=== PATIENT | female | born 1935 | race Caucasian/White ===

== ENCOUNTER 2017-03-01 06:35 | Observation (INO) ==
--- NOTE | 2017-03-01 07:17 | Emergency Department Note ---
Disposition Clinical Impression: Altered mental status, Confusion, Leukocytosis, LBBB (left bundle branch block) Disposition: Admitted As Inpatient Altered Mental Status HPI - General Chief Complaint: ED Altered Mental Status Stated Complaint: ams Time Seen by Provider: 03/01/17 06:38 Source: EMS Mode of arrival: EMS Limitations: altered mental status Nursing Notes Reviewed: Yes Vital Signs Reviewed: Yes - History of Present Illness HPI Narrative: History is the patient typically is up reading her Bible every day over the past 24 hours since fall yesterday she has had increasing confusion to the point where she comes into the ER today decreased responsiveness unable to count conversation mumbling no respiratory distress noted patient unable to provide history no additional history is provided by the care facility at this time MD complaint: altered mental status, confusion, decreased responsiveness Onset (ago): day(s) Timing confirmed by: caregiver Pain Severity: unable Consistency of Symptoms: getting worse Context: trauma Associated symptoms: Reports: other (Unable to provide) - Related Data Home Medications Medication Instructions Recorded Confirmed Bisacodyl [Woman's Laxative] 5 mg PO PRN PRN 03/01/17 03/04/17 Cranberry 900 mg PO DAILY 03/01/17 03/04/17 Divalproex Sodium [Depakote] 250 mg PO BID 03/01/17 03/04/17 Docusate [Colace] 100 mg PO DAILY 03/01/17 03/04/17 Furosemide [Lasix] 20 mg PO DAILY 03/01/17 03/04/17 Levothyroxine [Synthroid] 50 mcg PO 0630 03/01/17 03/04/17 Sitagliptin Phosphate [Januvia] 50 mg PO DAILY 03/01/17 03/04/17 Acetaminophen [Tylenol] 650 mg PO Q4H PRN 03/04/17 03/04/17 Benztropine Mesylate 1 mg PO BID 03/04/17 03/04/17 Ibuprofen [Motrin] 400 mg PO Q8H PRN 03/04/17 03/04/17 Losartan Potassium [Cozaar] 50 mg PO DAILY 03/04/17 03/04/17 Magnesium Hydroxide [Milk of 30 ml PO DAILY PRN 03/04/17 03/04/17 Magnesia] Mv,Fe,Min/Lutein [A Thru Z Select 1 tab PO DAILY 03/04/17 03/04/17 Women's Tablet] Ondansetron HCl [Zofran] 4 mg PO Q4H PRN 03/04/17 03/04/17 Ziprasidone HCl [Geodon] 20 mg PO BID 03/04/17 03/04/17 risperiDONE [RisperDAL] 1 mg PO BID 03/04/17 03/04/17 Previous Rx's Medication Instructions Recorded Aspirin [Lo-Dose Aspirin EC] 81 mg PO Q48H #0 03/02/17 LORazepam [Ativan] 0.5 mg PO TID PRN #0 03/02/17 Allergies Allergy/AdvReac Type Severity Reaction Status Date / Time No Known Allergies Allergy Verified 03/01/17 06:37 Limitations: ROS unobtainable due to patients medical condition Past Medical History - Past Medical History Source: unable to obtain, old records reviewed, nursing notes reviewed Medical history: Reports: CHF, dementia, diabetes, hypertension Psychiatric history: Reports: anxiety, bipolar, schizophrenia - Social History Smoking Status: Former smoker Smokeless Tobacco Status: No Alcohol use: Reports: none Physical Exam - General Limitations: altered mental status General appearance: alert, in no apparent distress, anxious (Jumbled speech) - Head Head exam: normocephalic, normal inspection - Expanded Head Exam 1 - facial brising - Eye Eye exam: Present: normal appearance, PERRL, EOMI - ENT ENT exam: normal exam, normal oropharynx, mucous membranes moist, normal external ear exam, other (secretion in throat) - Neck Neck exam: Present: normal inspection, full ROM, trachea midline - Chest Chest inspection: Present: normal inspection, symmetric chest wall rise - Respiratory Respiratory exam: Present: normal lung sounds bilaterally, other (transmitted upper airway sounds) - Cardiovascular Cardiovascular exam: Present: regular rate, normal rhythm, normal heart sounds - Abdominal Exam Abdominal exam: Present: soft, Non-Tender, normal bowel sounds - Extremities Exam Extremities exam: Present: other (Moving upper extremities lower extremities are edematous no gross pitting noted no sores no lesions purposeful movements are intact withdrawing to pain but no gross asymmetry noted +2 radial ulnar dorsal pedal posterior tibial pulses neurosensory intact withdraws to pain) - Expanded Lower Extremity Exam Neurovascular/Tendon exam: Present: normal capillary refill - Back Exam Back exam: Present: normal inspection, full ROM - Neurological Exam Neurological exam: Present: alert, CN II-XII intact, other (confused) - Psychiatric Psychiatric exam: Present: agitated - Skin Skin exam: Present: warm, dry, intact, normal color Course Course Narrative: Multisystem workup was started on the patient upon evaluation the patient to rule out etiologies for the confusional state labs and x-rays are pending - Reevaluation(s) Reevaluation #1: pt improved post fluids patient is more alert speech is much more discernible hematoma more pronounced to the face and skin is pink warm and dry with exception of the bruising around the face patient did have a little decrease in her blood pressure but responded well to fluid resuscitation blood pressure 106/ 76 heart rate 73 sats 97% respiratory rate in the 20s lungs are clear heart regular rate capillary refill is brisk no cyanosis strong peripheral pulses noted in skin is without tears or lesions. Dr. Gonzalez agreed for admission Vital Signs Temperature 98.3 F 03/01/17 06:38 Pulse Rate 112 03/01/17 06:38 Respiratory Rate 18 03/01/17 06:38 Blood Pressure 105/68 03/01/17 06:38 O2 Sat by Pulse Oximetry 95 03/01/17 06:38 Temperature 98 F 03/02/17 10:00 Pulse Rate 91 03/02/17 10:00 Respiratory Rate 18 03/02/17 10:00 Blood Pressure 125/63 03/02/17 10:00 O2 Sat by Pulse Oximetry 91 03/02/17 10:00 Oxygen Delivery Oxygen Delivery Nasal Cannula Altered Mental Status - [facility] Narrative Medical decision making narrative: cva intercranial bleed infectious - Differential Diagnosis Likely: altered mental status, delirium, dementia, hypoglycemia, hyponatremia, sepsis - Medical Records Medical records reviewed: Yes I reviewed the patient's medical records. - Lab Data Lab results reviewed: Yes I reviewed the patient's lab results. Result diagrams: 03/02/17 04:16 03/02/17 04:16 Lab Results 03/01/17 03/01/17 03/01/17 Range/Units 06:47 07:25 07:25 WBC 8.0 (4.3-11.1) K/mcL RBC 4.47 (3.82-4.97) M/mcL Hgb 13.4 (11.5-15.4) g/dL Hct 40.9 (35.3-44.9) % MCV 91.5 (83.0-100.0) fL MCH 30.0 (28.0-33.3) pg MCHC 32.8 (31.6-35.5) g/dL RDW 12.9 (11.5-14.5) % Plt Count 313 (140-400) K/mcL MPV 10.1 (9.4-12.4) fL Immature Gran % 0.6 (0-4) % Seg Neutrophils % 79.2 % Lymphocytes % 12.7 % Monocytes % 5.6 % Eosinophils % 1.2 % Basophils % 0.7 % Neutrophils # 6.3 (1.6-8.9) K/mcL Lymphocytes # 1.0 (0.6-4.6) K/mcL Monocytes # 0.5 (0.0-1.3) K/mcL Eosinophils # 0.1 (0.0-0.6) K/mcL Basophils # 0.1 (0.0-0.2) K/mcL PT 10.9 (9.4-12.1) Seconds INR 1.0 APTT 26.6 (26.0-36.0) Seconds Sodium (136-145) mEq/L Potassium (3.5-4.5) mEq/L Chloride (98-109) mEq/L Carbon Dioxide (19-29) mEq/L BUN (7-20) mg/dL Creatinine (0.57-1.11) mg/dL Est GFR ( Amer) (> 60) Est GFR (Non-Af Amer) (> 60) BUN/Creatinine Ratio (6-26) Glucose (70-99) mg/dL POC Glucose 157 H (58-89) Calculated Osmolality (280-300) Lactic Acid (0.5-2.2) mmol/L Calcium (8.6-10.8) mg/dL Total Bilirubin (0.2-1.2) mg/dL AST (5-34) Units/L ALT (0-55) Units/L Alkaline Phosphatase (38-126) Units/L Troponin I (0-0.03) ng/mL Serum Total Protein (6.0-8.3) g/dL Albumin (3.5-5.0) g/dL Globulin (2.4-3.5) g/dL Albumin/Globulin Ratio (1.1-2.2) TSH (0.350-4.840) mcIU/mL Urine Color (Yellow) Urine Clarity (Clear) Urine pH (5.0-8.0) pH Units Ur Specific [place] (1.010-1.025) Urine Protein (Neg-Trace) mg/dL Urine Glucose (UA) (Normal) mg/dL Urine Ketones (Negative) mg/dL Urine Blood (Negative) Urine Nitrite (Negative) Urine Bilirubin (Negative) Urine Urobilinogen (Normal) mg/dL Ur Leukocyte Esterase (Negative) Urine Microscopic WBC (0-3) per hpf Ur Squamous Epith Cells (None-Few) per lpf Urine Bacteria (None-Few) per hpf Hyaline Casts (None-Few) per lpf Ur Culture Indicated? (NO) Valproic Acid (50-100) mcg/mL 03/01/17 03/01/17 03/01/17 Range/Units 07:25 07:25 07:25 WBC (4.3-11.1) K/mcL RBC (3.82-4.97) M/mcL Hgb (11.5-15.4) g/dL Hct (35.3-44.9) % MCV (83.0-100.0) fL MCH (28.0-33.3) pg MCHC (31.6-35.5) g/dL RDW (11.5-14.5) % Plt Count (140-400) K/mcL MPV (9.4-12.4) fL Immature Gran % (0-4) % Seg Neutrophils % % Lymphocytes % % Monocytes % % Eosinophils % % Basophils % % Neutrophils # (1.6-8.9) K/mcL Lymphocytes # (0.6-4.6) K/mcL Monocytes # (0.0-1.3) K/mcL Eosinophils # (0.0-0.6) K/mcL Basophils # (0.0-0.2) K/mcL PT (9.4-12.1) Seconds INR APTT (26.0-36.0) Seconds Sodium 140 (136-145) mEq/L Potassium 4.0 (3.5-4.5) mEq/L Chloride 105 (98-109) mEq/L Carbon Dioxide 23 (19-29) mEq/L BUN 17 (7-20) mg/dL Creatinine 0.85 (0.57-1.11) mg/dL Est GFR ( Amer) > 60 (> 60) Est GFR (Non-Af Amer) > 60 (> 60) BUN/Creatinine Ratio 20 (6-26) Glucose 174 H (70-99) mg/dL POC Glucose (58-89) Calculated Osmolality 296 (280-300) Lactic Acid 2.1 (0.5-2.2) mmol/L Calcium 9.5 (8.6-10.8) mg/dL Total Bilirubin 0.5 (0.2-1.2) mg/dL AST 16 (5-34) Units/L ALT 15 (0-55) Units/L Alkaline Phosphatase 83 (38-126) Units/L Troponin I 0.02 (0-0.03) ng/mL Serum Total Protein 6.8 (6.0-8.3) g/dL Albumin 3.5 (3.5-5.0) g/dL Globulin 3.3 (2.4-3.5) g/dL Albumin/Globulin Ratio 1.1 (1.1-2.2) TSH 2.621 (0.350-4.840) mcIU/mL Urine Color (Yellow) Urine Clarity (Clear) Urine pH (5.0-8.0) pH Units Ur Specific [place] (1.010-1.025) Urine Protein (Neg-Trace) mg/dL Urine Glucose (UA) (Normal) mg/dL Urine Ketones (Negative) mg/dL Urine Blood (Negative) Urine Nitrite (Negative) Urine Bilirubin (Negative) Urine Urobilinogen (Normal) mg/dL Ur Leukocyte Esterase (Negative) Urine Microscopic WBC (0-3) per hpf Ur Squamous Epith Cells (None-Few) per lpf Urine Bacteria (None-Few) per hpf Hyaline Casts (None-Few) per lpf Ur Culture Indicated? (NO) Valproic Acid (50-100) mcg/mL 03/01/17 03/01/17 Range/Units 07:25 07:25 WBC (4.3-11.1) K/mcL RBC (3.82-4.97) M/mcL Hgb (11.5-15.4) g/dL Hct (35.3-44.9) % MCV (83.0-100.0) fL MCH (28.0-33.3) pg MCHC (31.6-35.5) g/dL RDW (11.5-14.5) % Plt Count (140-400) K/mcL MPV (9.4-12.4) fL Immature Gran % (0-4) % Seg Neutrophils % % Lymphocytes % % Monocytes % % Eosinophils % % Basophils % % Neutrophils # (1.6-8.9) K/mcL Lymphocytes # (0.6-4.6) K/mcL Monocytes # (0.0-1.3) K/mcL Eosinophils # (0.0-0.6) K/mcL Basophils # (0.0-0.2) K/mcL PT (9.4-12.1) Seconds INR APTT (26.0-36.0) Seconds Sodium (136-145) mEq/L Potassium (3.5-4.5) mEq/L Chloride (98-109) mEq/L Carbon Dioxide (19-29) mEq/L BUN (7-20) mg/dL Creatinine (0.57-1.11) mg/dL Est GFR ( Amer) (> 60) Est GFR (Non-Af Amer) (> 60) BUN/Creatinine Ratio (6-26) Glucose (70-99) mg/dL POC Glucose (58-89) Calculated Osmolality (280-300) Lactic Acid (0.5-2.2) mmol/L Calcium (8.6-10.8) mg/dL Total Bilirubin (0.2-1.2) mg/dL AST (5-34) Units/L ALT (0-55) Units/L Alkaline Phosphatase (38-126) Units/L Troponin I (0-0.03) ng/mL Serum Total Protein (6.0-8.3) g/dL Albumin (3.5-5.0) g/dL Globulin (2.4-3.5) g/dL Albumin/Globulin Ratio (1.1-2.2) TSH (0.350-4.840) mcIU/mL Urine Color Yellow (Yellow) Urine Clarity Clear (Clear) Urine pH 5.0 (5.0-8.0) pH Units Ur Specific [place] 1.015 (1.010-1.025) Urine Protein Negative (Neg-Trace) mg/dL Urine Glucose (UA) Normal (Normal) mg/dL Urine Ketones Negative (Negative) mg/dL Urine Blood Negative (Negative) Urine Nitrite Negative (Negative) Urine Bilirubin Negative (Negative) Urine Urobilinogen Normal (Normal) mg/dL Ur Leukocyte Esterase Small H (Negative) Urine Microscopic WBC 3-5 H (0-3) per hpf Ur Squamous Epith Cells Few (None-Few) per lpf Urine Bacteria Many H (None-Few) per hpf Hyaline Casts Few (None-Few) per lpf Ur Culture Indicated? YES A (NO) Valproic Acid 38.1 L (50-100) mcg/mL - Radiology Data Radiology results reviewed: Yes I reviewed the patient's radiology results. ITS Impressions Cervical Spine CT 03/01/17 06:54 IMPRESSION: No acute abnormality of the cervical spine. D/ / Angel Salinas MD / Angel Salinas MD Interpreting Provider: Angel Salinas MD Chest X-Ray 03/01/17 06:54 IMPRESSION: Slightly limited exam due to technique, however no acute findings. D/ / 03/01/2017 08:12:10 Jb Villa / casey Interpreting Provider: Jb Villa Head CT 03/01/17 06:54 IMPRESSION: Left frontal scalp subcutaneous soft tissue swelling. No acute intracranial abnormality. 2.2 x 2.5 x 2.6 cm partially calcified extra-axial mass centered along the anterior falx, with local mass effect upon the adjacent structures, likely related to a meningioma. Follow-up brain MRI with and without contrast is recommended. Mild parenchymal volume loss. Mild chronic microvascular disease. D/ / Juan Jose Cohen MD / Juan Jose Cohen MD Interpreting Provider: Juan Jose Cohen MD - EKG Data EKG attestation: Yes I reviewed and interpreted this EKG. EKG results narrative: Left bundle branch sinus tach rate 105 PM 176 QRS 130 QT 358 axis XXXVIII TPA Checklist - LKW: 3-4.5 hrs Add. Warnings/Precautions Patient/family understanding: The patient/family members have been counseled and understood the risk, benefit , and alternatives of treatment. Critical Care Time Critical Care Time: Yes Total Critical Care Time: 35 Attestation: Critical care performed: 35 minutes as result of the patient having an alteration of her mental status unable to provide us with any history during workup to try to determine etiology for the alteration of the patient's mental status weathers intercranial bleed or infectious etiology awaiting results at this time to determine admission versus transfer he does have an underlying UTI which may be the precipitating factor spoke with Dr. Gonzalez she has a benign calcified meningioma within the intercranial region documented from prior patient will be transferred to [facility] Time is exclusive of separately billable procedures. Time includes: direct patient care, patient reassessment, coordination of patient care, interpretation of data (laboratory data, radiology data, and respiratory data), review of patient's medical records, medical consultation and documentation of patient care. Procedures included in critical care time: Procedures excluded from critical care time:
[2017-03-01 07:38] LABS: Basophils # 0.1 K/mcL (0.0-0.2); Basophils % 0.7 %; Eosinophils # 0.1 K/mcL (0.0-0.6); Eosinophils % 1.2 %; Hematocrit 40.9 % (35.3-44.9); Hemoglobin 13.4 g/dL (11.5-15.4); Immature Granulocytes % 0.6 % (0-4); Lymphocytes % 12.7 %; Mean Corpuscular HGB Conc 32.8 g/dL (31.6-35.5); Mean Corpuscular Volume 91.5 fL (83.0-100.0); Mean Platelet Volume 10.1 fL (9.4-12.4); Monocytes # 0.5 K/mcL (0.0-1.3); Monocytes % 5.6 %; Neutrophils # 6.3 K/mcL (1.6-8.9); Platelet Count 313 K/mcL (140-400); Red Blood Count 4.47 M/mcL (3.82-4.97); Red Cell Distribution Width 12.9 % (11.5-14.5); Segmented Neutrophils % 79.2 %
[2017-03-01 07:40] LABS: Bilirubin,Urine Negative (Negative); Blood,Urine Negative (Negative); Clarity,Urine Clear (Clear); Color,Urine Yellow (Yellow); Glucose,Urine (UA) Normal (Normal); Ketones,Urine Negative (Negative); Leukocyte Esterase,Urine Small (Negative); Nitrite,Urine Negative (Negative); Protein,Urine Negative (Neg-Trace); Prothrombin Time 10.9 Seconds (9.4-12.1); Specific Gravity,Urine 1.015 (1.010-1.025); Urobilinogen,Urine Normal (Normal)
[2017-03-01 07:43] LABS: Activated Partial Thrombo Time 26.6 Seconds (26.0-36.0)
[2017-03-01 07:51] LABS: Bacteria,Urine Many per hpf (None-Few); Hyaline Casts,Urine Few per lpf (None-Few); Squamous Epithelial Cell,Urine Few per lpf (None-Few)
[2017-03-01 08:06] LABS: Alanine Aminotransferase 15 Units/L (0-55); Albumin 3.5 g/dL (3.5-5.0); Albumin/Globulin Ratio 1.1 (1.1-2.2); Alkaline Phosphatase 83 Units/L (38-126); Aspartate Amino Transferase 16 Units/L (5-34); BUN/Creatinine Ratio 20 (6-26); Bilirubin,Total 0.5 mg/dL (0.2-1.2); Blood Urea Nitrogen 17 mg/dL (7-20); Calcium 9.5 mg/dL (8.6-10.8); Carbon Dioxide 23 mEq/L (19-29); Chloride 105 mEq/L (98-109); Globulin 3.3 g/dL (2.4-3.5); Glucose 174 mg/dL (70-99); Osmolality,Calculated 296 (280-300); Sodium 140 mEq/L (136-145); Total Protein 6.8 g/dL (6.0-8.3); eGFR For African Americans > 60 (> 60); eGFR For Non-African Americans > 60 (> 60)
[2017-03-01] MEDS ORDERED: 0.9 % Sodium Chloride 500 ML IVC ONE (08:16)
[2017-03-01 08:26] LABS: Thyroid Stimulating Hormone 2.621 mcIU/mL (0.350-4.840)
[2017-03-01] MEDS ORDERED: 0.9 % Sodium Chloride 1,000 ML IVC ONE (08:30)
[2017-03-01] MEDS ORDERED: *HR* SitaGLIPtin 25 MG TABLET PO SCH (09:39)
[2017-03-01] MEDS ORDERED: *HR* LORazepam 0.5 MG TABLET PO SCH ×2 (09:39→15:00)
[2017-03-01] MEDS ORDERED: CRANBERRY 900 MG PO SCH (09:39)
[2017-03-01] MEDS ORDERED: Divalproex Sodium 125 MG CAPSULE PO SCH (09:39)
[2017-03-01] MEDS ORDERED: Aspirin Enteric Coated 81 MG Tablet PO SCH (09:39)
[2017-03-01] MEDS ORDERED: Furosemide 20 MG TABLET PO SCH (09:39)
[2017-03-01] MEDS ORDERED: Acetaminophen 325 MG TABLET PO PRN (09:39)
[2017-03-01] MEDS ORDERED: Ziprasidone 20 MG CAPSULE PO SCH ×2 (09:39→21:00)
[2017-03-01] MEDS ORDERED: risperiDONE 1 MG TABLET PO SCH ×2 (09:39→21:00)
[2017-03-01] MEDS ORDERED: Naloxone 0.4 MG/ML INJ IVP PRN (09:39)
[2017-03-01] MEDS: 0.9 % Sodium Chloride 1,000 ML IVC SCH (14:18)
[2017-03-01] MEDS ORDERED: *HR* LORazepam 0.5 MG TABLET PO PRN (14:49)
--- NOTE | 2017-03-01 14:53 | Internal Med History&Physical ---
Date of Encounter: 03/01/17 Time of Encounter: 14:25 Assessment and Plan (1) Confusion Current visit: Yes Status: Acute Possibly multifactorial etiology including underlying dementia, medication effects, and possible UTI. Will hold psychotropic medications and reevaluate tomorrow. (2) Meningioma Current visit: Yes Status: Acute Diagnosis consistent with partially calcified mass seen on CT of head. (3) Hypertension Current visit: Yes Status: Chronic We will hold Cozaar because of borderline hypotension. Qualifiers: Hypertension type: essential hypertension Qualified Code(s): I10 - Essential (primary) hypertension (4) DM type 2 (diabetes mellitus, type 2) Current visit: Yes Status: Acute Hemoglobin A1c was 5.9% on 12/31/2016. Continue Januvia Qualifiers: Diabetes mellitus complication status: with unspecified complications Diabetes mellitus custodial insulin use: without custodial use Qualified Code( s): E11.8 - Type 2 diabetes mellitus with unspecified complications (5) Dementia Current visit: Yes Status: Chronic TSH was normal in emergency room. Will check B12 level Qualifiers: Dementia type: unspecified type Dementia behavioral disturbance: with behavioral disturbance Qualified Code(s): F03.91 - Unspecified dementia with behavioral disturbance Internal Medicine - H&P: HPI Chief complaint: Decreased LOC with confusion Admitted From: Long-term Nursing Facility Plans for Post Hospital Care: Transfer [facility] History of present illness: Ms. Sin is a 81 year old female who was brought to the emergency room after skilled nursing staff reported she had had increasing confusion and decreased LOC over the past 24 hours. She could not give any reliable history. She had a fall on February 28 at the skilled nursing with trauma to her left supraorbital area. Head CT and C-spine CT in emergency room did not show acute pathology. She was admitted to Med[facility] floor for ongoing care needs. Past Med Surg Social Fam HX - Past Medical History Medical history: CHF, dementia, diabetes, hypertension Psychiatric history: anxiety, bipolar, schizophrenia - Social History Smoking Status: Former smoker Smokeless Tobacco Status: No Alcohol use: none Internal Medicine - H&P: Meds Aspirin [Lo-Dose Aspirin EC] 81 mg PO DAILY 03/01/17 [History] Benztropine [Cogentin] 1 mg PO BID 03/01/17 [History] Bisacodyl [Woman's Laxative] 5 mg PO PRN PRN 03/01/17 [History] Cranberry 900 mg PO DAILY 03/01/17 [History] Divalproex Sodium [Depakote] 125 mg PO BID 03/01/17 [History] Docusate [Colace] 100 mg PO DAILY 03/01/17 [History] Furosemide [Lasix] 20 mg PO DAILY 03/01/17 [History] LORazepam [Ativan] 0.5 mg PO TID 03/01/17 [History] Levothyroxine [Synthroid] 50 mcg PO 0630 03/01/17 [History] Losartan Potassium [Cozaar] 50 mg PO DAILY 03/01/17 [History] Sitagliptin Phosphate [Januvia] 50 mg PO DAILY 03/01/17 [History] Ziprasidone [Geodon] 20 mg PO BID 03/01/17 [History] risperiDONE [Risperdal] 1 mg PO BID 03/01/17 [History] 3 Allergy/AdvReac Type Severity Reaction Status Date / Time No Known Allergies Allergy Verified 03/01/17 06:37 All Systems PM: A 10-system review of systems was performed and is negative for pertinent findings except as documented above in the HPI. Review of systems: Unavailable from the patient. Available records show diagnoses of CHF, dementia , DM 2, hypertension, anxiety, bipolar disorder, and schizophrenia. - Constitutional Vitals: Temp Pulse Resp BP Pulse Ox 98.0 F 72 20 88/42 94 03/01/17 14:27 03/01/17 14:27 03/01/17 14:27 03/01/17 14:27 03/01/17 14:27 Exam: Gen.: She is a well-developed well-nourished female lying quietly in bed. She is not conversational. She does answer an occasional question but answers are not felt to be accurate. HEENT: Head shows contusion in the left supraorbital area. No lacerations are seen. Eyes: EOMI. There is no scleral icterus. Mouth: Mucosa is dry. Neck: Supple and nontender. There is no thyromegaly or adenopathy noted. Heart: Regular without murmurs gallops or ectopics Lungs: No wheezes or crackles are heard. Abdomen: Soft and nontender. No masses or guarding are noted. Extremities: There is no cyanosis edema or clubbing noted. Dorsalis pedis and posterior tibial pulses are trace palpable bilaterally. Neurologic: Mental status: She is not conversational and only answers occasional questions with short answers. Cranial nerves: Facial movements are symmetric. Forehead wrinkles bilaterally. Temperature its midline. EOMI. Motor: She does not follow commands to move her arms. I could not test for pronator drift. She has mild cogwheeling and rigidity on passive range of motion of her wrists and elbows. No further neurologic testing is attempted. Skin: Warm and dry Internal Med - H&P Results - Labs CBC & Chem 7: 03/01/17 07:25 03/01/17 07:25 Labs: Cardiac Enzymes 03/01/17 Range/Units 12:19 Troponin I 0.05 H* (0-0.03) ng/mL
--- NOTE | 2017-03-01 18:49 | Electrocardiograph Report ---
[address] [address] Test Date: 2017-03-01 Pat Name: Heydi Sin Department: [id number] Room: [facility] Gender: F Motor Vehicle Clerk: [id number] : [id number] Requested By: Diana Dos Santos Order Number: [id number] Reading MD: Madhav Clark MD Measurements Intervals [place] Rate: 105 P: 62 [place]: 176 QRS: 38 QRSD: 130 T: 222 QT: 358 QTc: 419 Interpretive Statements SINUS TACHYCARDIA LEFT BUNDLE BRANCH BLOCK Electronically Signed On 03-01-2017 18:47:35 EST by Madhav Clark MD
[2017-03-01] MEDS: Divalproex Sodium 125 MG CAPSULE PO SCH (20:45)
[2017-03-02] MEDS: 0.9 % Sodium Chloride 1,000 ML IVC SCH (04:18)
[2017-03-02 05:19] LABS: Basophils % 0.7 %; Eosinophils # 0.2 K/mcL (0.0-0.6); Hematocrit 33.6 % (35.3-44.9); Hemoglobin 11.2 g/dL (11.5-15.4); Immature Granulocytes % 0.5 % (0-4); Lymphocytes # 1.4 K/mcL (0.6-4.6); Lymphocytes % 25.5 %; Mean Corpuscular HGB Conc 33.3 g/dL (31.6-35.5); Mean Corpuscular Hemoglobin 30.1 pg (28.0-33.3); Mean Corpuscular Volume 90.3 fL (83.0-100.0); Mean Platelet Volume 10.3 fL (9.4-12.4); Monocytes # 0.4 K/mcL (0.0-1.3); Neutrophils # 3.4 K/mcL (1.6-8.9); Platelet Count 276 K/mcL (140-400); Red Blood Count 3.72 M/mcL (3.82-4.97); Red Cell Distribution Width 13.2 % (11.5-14.5); Segmented Neutrophils % 61.3 %
[2017-03-02 05:35] LABS: BUN/Creatinine Ratio 16 (6-26); Blood Urea Nitrogen 13 mg/dL (7-20); Carbon Dioxide 23 mEq/L (19-29); Chloride 109 mEq/L (98-109); Glucose 125 mg/dL (70-99); Osmolality,Calculated 296 (280-300); Potassium 4.1 mEq/L (3.5-4.5); Sodium 142 mEq/L (136-145); eGFR For African Americans > 60 (> 60); eGFR For Non-African Americans > 60 (> 60)
[2017-03-02] MEDS ORDERED: Levothyroxine 25 MCG TABLET PO SCH (06:30)
[2017-03-02] MEDS ORDERED: *HR* SitaGLIPtin 25 MG TABLET PO SCH (09:00)
[2017-03-02] MEDS ORDERED: Aspirin Enteric Coated 81 MG Tablet PO SCH (09:00)
[2017-03-02] MEDS ORDERED: Furosemide 20 MG TABLET PO SCH (09:00)
[2017-03-02] MEDS: Divalproex Sodium 125 MG CAPSULE PO SCH (10:06)
[2017-03-02 10:19] VITALS: BP 125/63
--- NOTE | 2017-03-02 14:29 | Discharge Summary ---
Date of Encounter: 03/02/17 Time of Encounter: 14:15 - Discharge Diagnosis (1) Confusion Priority: Primary Status: Acute (2) Dementia Priority: Secondary Status: Chronic Qualifiers: Dementia type: unspecified type Dementia behavioral disturbance: with behavioral disturbance Qualified Code(s): F03.91 - Unspecified dementia with behavioral disturbance (3) Meningioma Priority: Secondary Status: Acute (4) Hypertension Priority: Secondary Status: Chronic Qualifiers: Hypertension type: essential hypertension Qualified Code(s): I10 - Essential (primary) hypertension (5) DM type 2 (diabetes mellitus, type 2) Priority: Secondary Status: Acute Qualifiers: Diabetes mellitus complication status: with unspecified complications Diabetes mellitus community development specialist insulin use: without community development specialist use Qualified Code( s): E11.8 - Type 2 diabetes mellitus with unspecified complications - Discharge Medications Home Medications: Bisacodyl [Woman's Laxative] 5 mg PO PRN PRN 03/01/17 [History] Cranberry 900 mg PO DAILY 03/01/17 [History] Divalproex Sodium [Depakote] 125 mg PO BID 03/01/17 [History] Docusate [Colace] 100 mg PO DAILY 03/01/17 [History] Furosemide [Lasix] 20 mg PO DAILY 03/01/17 [History] Levothyroxine [Synthroid] 50 mcg PO 0630 03/01/17 [History] Sitagliptin Phosphate [Januvia] 50 mg PO DAILY 03/01/17 [History] Aspirin [Lo-Dose Aspirin EC] 81 mg PO Q48H #0 03/02/17 [Rx] LORazepam [Ativan] 0.5 mg PO TID PRN #0 03/02/17 [Rx] Allergies/Adverse Reactions: 3 Allergy/AdvReac Type Severity Reaction Status Date / Time No Known Allergies Allergy Verified 03/01/17 06:37 Date of admission: 03/01/17 08:56 Primary care physician: Isaac Cooney MD Consults: 03/01/17 09:51 Consult to Occupational Therapy [CONS] Routine Comment: Evaluate, develop and implement POC Reason for Consult: Weakness and lethargy Consult to Physical Therapy [CONS] Routine Comment: Evaluate, develop and implement POC Reason for Consult: Weakness and lethargy 03/01/17 10:18 Consult to Foxpro Developer [CONS] Routine Reason for SW Consult: Discharge Planning back to ECF - Patient Status Disposition: Transfer SNF Overall status at discharge: patient is progressing back to baseline - Discharge Instructions Follow Up With: Isaac Cooney MD [Primary Care Provider] - 1 week - Diet and Activity Activity: resume usual activities as tolerated Diet: advance to your usual diet Hospital course: Ms. Sin is a 81 year old female who was brought to the emergency room after [facility] staff reported she had had increasing confusion and decreased LOC over the past 24 hours. She could not give any reliable history. She had a fall on February 28 at the [facility] with trauma to her left supraorbital area. Head CT and C-spine CT in emergency room did not show acute pathology. She was admitted to [facility] for ongoing care needs. Initial orders were written by the emergency room physician. I saw her on March 01 and performed the history and physical. Most of her psychotropic medications were held. She had minimal change in her confusion and lethargy and remained non-conversational. She would answer a few questions but answers were consistent with underlying significant dementia. She will remain off most psychotropic medicines at discharge. Cozaar was held because of borderline hypotension. She will remain off this at discharge. Preliminary urine culture report showed growth of gram-positive organisms. I was uncertain of this is a true pathogen or simply bacteriuria. She was not given antibiotics at discharge. B12 level returned satisfactory at 810. On March 02 I felt she was stable for discharge back to [facility] where she will follow with Dr. Kohli. - Time Spent with Patient Total time spent providing and/or coordinating discharge services: - Constitutional Vitals: Temp Pulse Resp BP Pulse Ox 98 F 91 18 125/63 91 03/02/17 10:00 03/02/17 10:00 03/02/17 10:00 03/02/17 10:00 03/02/17 10:00
--- NOTE | 2017-03-02 14:37 | Physician Discharge Referral ---
ExtendedCare Referral Info Transfer To: [facility] Provider in Charge: Carlos Provider in Charge after Transfer: PCP (Zain Gruber M.D.) - Diagnosis (1) Confusion Priority: Primary Status: Acute (2) Dementia Priority: Secondary Status: Chronic (3) Meningioma Priority: Secondary Status: Acute (4) Hypertension Priority: Secondary Status: Chronic (5) DM type 2 (diabetes mellitus, type 2) Priority: Secondary Status: Acute - Transfer Medications Home Medications: Bisacodyl [Woman's Laxative] 5 mg PO PRN PRN 03/01/17 [History] Cranberry 900 mg PO DAILY 03/01/17 [History] Divalproex Sodium [Depakote] 125 mg PO BID 03/01/17 [History] Docusate [Colace] 100 mg PO DAILY 03/01/17 [History] Furosemide [Lasix] 20 mg PO DAILY 03/01/17 [History] Levothyroxine [Synthroid] 50 mcg PO 0630 03/01/17 [History] Sitagliptin Phosphate [Januvia] 50 mg PO DAILY 03/01/17 [History] Aspirin [Lo-Dose Aspirin EC] 81 mg PO Q48H #0 03/02/17 [Rx] LORazepam [Ativan] 0.5 mg PO TID PRN #0 03/02/17 [Rx] Allergies/Adverse Reactions: 3 Allergy/AdvReac Type Severity Reaction Status Date / Time No Known Allergies Allergy Verified 03/01/17 06:37 - Respiratory Orders Smoking Cessation: Smoking cessation has been advised. For more information, call the [place] Tobacco Quit Line at 1-929-PPBX-NOW. - Rehabiliation Orders Rehab Potential: Poor - Diet Orders Regular CERTIFICATION: I certify that the transfer of the above named patient to an Extended Care Facility is necessary for the continuing treatment of the diagnosis listed. The above information is true and accurate reflection of patient's current condition. Confidential - Redisclosure prohibited without a patient's written consent.
== END 2017-03-02 17:00 ==
LOC: INPPIK 06:35 → EMEROOPIK 06:35 → INPPIK 08:59
PROVIDERS: ADMIT Internal Medicine; ATTEND Internal Medicine